=== PATIENT | male | born 1990 | race Caucasian/White ===

== ENCOUNTER 2020-05-07 13:51 | Emergency (ER) | payer OTHER ==
[~2020-05-07] VITALS: Ht 188 cm; Wt 148.8 kg
[2020-05-07] MEDS ORDERED: METH-1164 (14:15)
[2020-05-07] MEDS ORDERED: NAPR-885 (14:15)
--- NOTE | 2020-05-07 15:36 | REP ---
INDICATION: SEVERE PAIN/INJURY. COMPARISON: None. TECHNIQUE: Seven views of the lumbar spine are obtained including flexion extension lateral views. FINDINGS: Lumbar vertebral body heights are preserved. Alignment is normal. There is no fracture or collapse seen. At L1-2, there is mild disc space narrowing and anterior discogenic spurring. There is mild disc narrowing at L4-5. There is no evidence of spondylolysis or spondylolisthesis. No subluxation or instability is seen on flexion extension lateral views. Facets are normally aligned. Pedicles and posterior elements are intact. Psoas margins are symmetric. Sacrum and SI joints are unremarkable. IMPRESSION: Degenerative disc disease changes at L4-5 and L1-2. No fracture, subluxation, or instability seen. <Electronically signed by Bhavesh Brar > 05/07/20 [id number]
[2020-05-07 19:05] VITALS: BP 127/79
--- NOTE | 2020-05-07 19:18 | REPVR ---
PROCEDURE INFORMATION: Exam: MR Lumbar Spine Without Contrast Exam date and time: 05/07/2020 4:50 PM Age: 29 years old Clinical indication: Low back pain; Additional info: Low back pain with reported saddle anesthesia TECHNIQUE: Imaging protocol: Multiplanar magnetic resonance images of the lumbar spine without intravenous contrast. COMPARISON: CR Spine. Lumbosacral, complete 05/07/2020 2:30 PM FINDINGS: Vertebrae: Anatomic alignment. No acute fracture seen. The AP canal diameter is diminished a developmental basis due to shortened pedicles. Spinal cord: The conus medullaris ends normally. There is disc desiccation at T12-L1, L1-L2 and L4-L5. L1-L2: 3 mm left paracentral disc protrusion does not contribute to significant central spinal canal stenosis. The neural foramina are patent. L2-L3: No significant disc disease. No significant spinal canal stenosis. No neural foraminal stenosis. L3-L4: Mild facet arthropathy. No stenoses. L4-L5: Mild diffuse disc bulge and facet arthropathy. A 3-4 mm central disc extrusion with high-intensity zone extends 4 mm above the disc space. Central spinal canal stenosis is mild, in part on a developmental basis. The lateral recesses are narrowed, disc material contacting the bilateral L5 nerve roots. Mild left neural foraminal stenosis. No significant right neural foraminal narrowing. L5-S1: Mild facet arthropathy. No stenoses. Soft tissues: Nonspecific edema in the back subcutaneous fat, potentially dependent/positional. IMPRESSION: A small central disc extrusion at L4-L5 may be cause of L5 distribution radiculopathy. Electronically signed by: Annie Keyes On 05/07/2020 19:18:35 PM
[2020-05-07] MEDS ORDERED: LIDO5DIS41 TOP (19:48)
--- NOTE | 2020-05-07 20:06 | ED PDOC ---
Post-Departure Follow-Up mri ls spine faxed to dr corey for fu Ezra Dominguez MD May 07, 2020 20:06
== END 2020-05-07 20:09 | disposition home or self-care (01) ==
LOC: M ED 13:51
DX: S39.012A Strain of muscle, fascia and tendon of lower back, initial encounter (principal); X50.0XXA Overexertion from strenuous movement or load, initial encounter; Y92.015 Private garage of single-family (private) house as the place of occurrence of the external cause; Y93.9 Activity, unspecified; Y99.9 Unspecified external cause status; M51.26 Other intervertebral disc displacement, lumbar region; M51.36 Other intervertebral disc degeneration, lumbar region; M48.061 Spinal stenosis, lumbar region without neurogenic claudication; M54.16 Radiculopathy, lumbar region; Z98.84 Bariatric surgery status